=== PATIENT | male | born 1955 | race Two or more races ===

== ENCOUNTER 2021-02-06 08:52 | Inpatient (IN) | payer BC, OTHER ==
[~2021-02-06] VITALS: Ht 182.9 cm; Wt 111.9 kg
[2021-02-06] MEDS ORDERED: cefTRIAXone 1GM/50ML D5W 50 ML IV ONE (10:00)
[2021-02-06] MEDS ORDERED: AZITHROMYCIN 500MG/ 250ML 250 ML IV ONE (10:00)
[2021-02-06] MEDS ORDERED: DexAMETHasone SOD PHOS 10MG/1ML VIAL INJ IV ONE (10:00)
[2021-02-06 10:26] LABS: Eosinophils # (auto) 0 10 ^3/uL (0-0.8); Hemoglobin 17.8 g/dL (13.5-17.5)
[2021-02-06 10:27] LABS: Basophils # (auto) 0 10 ^3/uL (0-0.2); Basophils % (auto) 0.1 % (0.0-2.0); Hematocrit 51.1 % (41.0-53.0); Lymphocytes # (auto) 0.4 10 ^3/uL (0.4-5.4); Lymphocytes % (auto) 2.9 % (10.0-50.0); Mean Corpuscular Hemoglobin 30.3 pg (28.0-32.0); Mean Corpuscular Hgb Conc. 34.9 g/dL (32.0-36.0); Monocytes # (auto) 0.9 10 ^3/uL (0-1.3); Nucleated Red Blood Cells % 0.2 %; Red Blood Cells 5.87 10^6/uL (4.5-5.90); Red Cell Distribution Width 13.7 % (11.8-14.3); White Blood Cell 14.3 10^3/uL (4.4-10.8)
[2021-02-06 10:50] LABS: INR 1.22 (0.9-1.15); Partial Thromboplastin Time 27.4 sec (23.6-33.0)
[2021-02-06 10:57] LABS: Albumin 2.4 g/dL (3.4-5.0); Calcium 8.4 mg/dL (8.5-10.1); Potassium 3.7 mmol/L (3.5-5.1)
[2021-02-06 11:05] LABS: BUN/Creatinine Ratio 23.7; Bilirubin, Total 0.7 mg/dL (0.2-1.0); CRP High Sensitivity 6.65 mg/dL (< 0.3); Total Protein 7.8 g/dL (6.4-8.2)
[2021-02-06] MEDS ORDERED: ONDANSETRON HCL 4 MG/2 ML VIAL IV PRN (14:45)
[2021-02-06] MEDS ORDERED: LORazepam 0.5 MG TAB PO PRN (14:45)
[2021-02-06] MEDS ORDERED: ACETAMINOPHEN 325 MG TAB PO PRN (14:45)
[2021-02-06] MEDS ORDERED: NITROGLYCERIN 0.4 MG SL TAB SL PRN (14:45)
[2021-02-06] MEDS ORDERED: HYDROcodone-ACET 5/325MG TAB PO PRN (14:45)
[2021-02-06] MEDS ORDERED: REMDESIVIR PER PHARMACY 0 ML IV SCH (14:45)
[2021-02-06] MEDS ORDERED: MORPHINE SULFATE INJECTION 2 MG/ML SYRG IV PRN (14:45)
[2021-02-06] MEDS ORDERED: DEXTROSE (50%) 50ML SYRG IV PRN (15:15)
[2021-02-06 16:02] LABS: Cholesterol 102 mg/dL (< 200)
[2021-02-06 16:05] LABS: HDL Cholesterol 24 mg/dL (40-59); LDL Cholesterol 59 mg/dL (< 100); Triglycerides 152 mg/dL (< 150)
[2021-02-06] MEDS ORDERED: REMDESIVIR 200 MG in NS 210ml LOADING DOSE ADULT IV ONE (16:30)
[2021-02-06] MEDS: ACCU-CHEK COMFORT CURVE STRIP VI SCH ×2 (18:09→22:15)
[2021-02-06] MEDS: SODIUM CHLORIDE 0.9% 1,000 ML IV SCH (18:09)
[2021-02-06] MEDS: InsuLIN REG 1unit/0.01ml Soln (100units/ml) SC SCH ×2 (18:15→22:18)
[2021-02-06] MEDS: BUDESONIDE (INHALATION) 180 MCG IH IN SCH (18:35)
[2021-02-06] MEDS: ALBUTEROL SULF HFA 90MCG INH 200DOSE IN PRN (19:37)
[2021-02-06 20:30] VITALS: BP 125/68
[2021-02-06 22:03] VITALS: BP 136/75
[2021-02-06] MEDS: ENOXAPARIN SOD 40 MG/0.4 ML SYRINGE SC SCH (22:15)
[2021-02-07] MEDS ORDERED: ALBU108A5 INH (02:57)
[2021-02-07] MEDS ORDERED: METF-370 PO (02:57)
[2021-02-07] MEDS ORDERED: IBUP800T26 PO (02:57)
[2021-02-07] MEDS ORDERED: LEVO50TA7 PO (02:57)
[2021-02-07] MEDS ORDERED: TRAM50TA2 PO (02:57)
[2021-02-07 05:00] VITALS: BP 127/71
[2021-02-07] MEDS: ACCU-CHEK COMFORT CURVE STRIP VI SCH ×4 (06:54→21:24)
[2021-02-07] MEDS: InsuLIN REG 1unit/0.01ml Soln (100units/ml) SC SCH ×4 (06:54→21:25)
[2021-02-07] MEDS: BUDESONIDE (INHALATION) 180 MCG IH IN SCH ×3 (06:55→20:46)
[2021-02-07] MEDS: ALBUTEROL SULF HFA 90MCG INH 200DOSE IN PRN ×3 (06:55→20:57)
[2021-02-07] MEDS: SODIUM CHLORIDE 0.9% 1,000 ML IV SCH (07:29)
[2021-02-07 07:46] LABS: Basophils # (auto) 0.1 10 ^3/uL (0-0.2); Basophils % (auto) 0.6 % (0.0-2.0); Eosinophils # (auto) 0 10 ^3/uL (0-0.8); Eosinophils % (auto) 0.1 % (0.0-7.0); Hematocrit 48.2 % (41.0-53.0); Mean Corpuscular Hemoglobin 30.2 pg (28.0-32.0); Monocytes # (auto) 0.6 10 ^3/uL (0-1.3); Neutrophils # (auto) 8.4 10 ^3/uL (1.6-8.6)
[2021-02-07 07:48] LABS: Hemoglobin 16.7 g/dL (13.5-17.5); Lymphocytes % (auto) 9.5 % (10.0-50.0); Mean Corpuscular Hgb Conc. 34.6 g/dL (32.0-36.0); Mean Corpuscular Volume 87.3 fL (80.0-100.0); Monocytes % (auto) 6.4 % (0.0-12.0); Neutrophils % (auto) 83.4 % (37.0-80.0); Nucleated Red Blood Cells % 0.1 %; Red Blood Cells 5.52 10^6/uL (4.5-5.90); Red Cell Distribution Width 13.8 % (11.8-14.3); White Blood Cell 10.1 10^3/uL (4.4-10.8)
[2021-02-07 07:58] LABS: Potassium 4.1 mmol/L (3.5-5.1)
[2021-02-07 08:09] LABS: Albumin 2.5 g/dL (3.4-5.0); BUN/Creatinine Ratio 28.1; Bilirubin, Total 0.8 mg/dL (0.2-1.0); Calcium 8.4 mg/dL (8.5-10.1); Total Protein 6.8 g/dL (6.4-8.2)
[2021-02-07] MEDS: cefTRIAXone 1GM/50ML D5W 50 ML IV SCH (08:53)
[2021-02-07] MEDS: ENOXAPARIN SOD 40 MG/0.4 ML SYRINGE SC SCH ×2 (08:54→21:24)
[2021-02-07] MEDS: ZINC SULFATE 220mg CAP or TAB PO SCH (08:54)
[2021-02-07] MEDS: AZITHROMYCIN 500MG/ 250ML 250 ML IV SCH (08:54)
[2021-02-07] MEDS: DexAMETHasone SOD PHOS 10MG/1ML VIAL INJ IV SCH (08:54)
[2021-02-07] MEDS: ASCORBIC ACID 1,000 MG TAB PO SCH (08:55)
[2021-02-07] MEDS: CHOLECALCIFEROL (VITD3) 2,000 UNIT CAP/TAB PO SCH (08:55)
[2021-02-07 09:00] VITALS: BP 134/69
[2021-02-07 13:00] VITALS: BP 131/73
[2021-02-07] MEDS: REMDESIVIR 100mg 100 MG in SODIUM CHL 0.9% 230 ML IV SCH (14:14)
[2021-02-07 17:00] VITALS: BP 120/63
[2021-02-07 22:00] VITALS: BP 130/75
[2021-02-08] MEDS: SODIUM CHLORIDE 0.9% 1,000 ML IV SCH (00:05)
[2021-02-08 05:00] VITALS: BP 133/70
[2021-02-08] MEDS: BUDESONIDE (INHALATION) 180 MCG IH IN SCH ×2 (06:17→21:31)
[2021-02-08] MEDS: ALBUTEROL SULF HFA 90MCG INH 200DOSE IN PRN ×2 (06:17→21:31)
[2021-02-08] MEDS: InsuLIN REG 1unit/0.01ml Soln (100units/ml) SC SCH ×4 (06:33→21:48)
[2021-02-08] MEDS: ACCU-CHEK COMFORT CURVE STRIP VI SCH ×4 (06:33→21:47)
[2021-02-08 07:02] LABS: Basophils # (auto) 0 10 ^3/uL (0-0.2); Basophils % (auto) 0.1 % (0.0-2.0); Eosinophils # (auto) 0 10 ^3/uL (0-0.8); Eosinophils % (auto) 0.1 % (0.0-7.0); Hematocrit 47.8 % (41.0-53.0); Hemoglobin 16.2 g/dL (13.5-17.5); Lymphocytes # (auto) 1.1 10 ^3/uL (0.4-5.4); Mean Corpuscular Hemoglobin 29.7 pg (28.0-32.0); Mean Corpuscular Hgb Conc. 33.9 g/dL (32.0-36.0); Mean Corpuscular Volume 87.5 fL (80.0-100.0); Monocytes # (auto) 0.7 10 ^3/uL (0-1.3); Monocytes % (auto) 6.7 % (0.0-12.0); Neutrophils # (auto) 8.3 10 ^3/uL (1.6-8.6); Neutrophils % (auto) 82.1 % (37.0-80.0); Nucleated Red Blood Cells % 0.1 %; Red Blood Cells 5.47 10^6/uL (4.5-5.90); Red Cell Distribution Width 13.8 % (11.8-14.3); White Blood Cell 10.1 10^3/uL (4.4-10.8)
[2021-02-08 07:32] LABS: BUN/Creatinine Ratio 30.7; Bilirubin, Total 0.6 mg/dL (0.2-1.0); Calcium 7.9 mg/dL (8.5-10.1); Potassium 4.1 mmol/L (3.5-5.1); Total Protein 6.1 g/dL (6.4-8.2)
[2021-02-08 07:33] LABS: Albumin 2.3 g/dL (3.4-5.0)
[2021-02-08 08:15] VITALS: BP 130/83
[2021-02-08] MEDS: cefTRIAXone 1GM/50ML D5W 50 ML IV SCH (08:27)
[2021-02-08] MEDS: AZITHROMYCIN 500MG/ 250ML 250 ML IV SCH (08:27)
[2021-02-08] MEDS: DexAMETHasone SOD PHOS 10MG/1ML VIAL INJ IV SCH (08:27)
[2021-02-08] MEDS: ZINC SULFATE 220mg CAP or TAB PO SCH (08:27)
[2021-02-08] MEDS: ASCORBIC ACID 1,000 MG TAB PO SCH (08:28)
[2021-02-08] MEDS: ENOXAPARIN SOD 40 MG/0.4 ML SYRINGE SC SCH ×2 (08:28→21:48)
[2021-02-08] MEDS: CHOLECALCIFEROL (VITD3) 2,000 UNIT CAP/TAB PO SCH (08:28)
[2021-02-08 12:00] VITALS: BP 139/92
[2021-02-08] MEDS: REMDESIVIR 100mg 100 MG in SODIUM CHL 0.9% 230 ML IV SCH (14:57)
[2021-02-08 16:00] VITALS: BP 144/69
[2021-02-08 22:00] VITALS: BP 144/72
[2021-02-09 05:00] VITALS: BP 145/68
[2021-02-09] MEDS: ALBUTEROL SULF HFA 90MCG INH 200DOSE IN PRN ×2 (05:51→23:08)
[2021-02-09] MEDS: BUDESONIDE (INHALATION) 180 MCG IH IN SCH ×2 (05:51→22:06)
[2021-02-09] MEDS: InsuLIN REG 1unit/0.01ml Soln (100units/ml) SC SCH ×4 (06:26→22:17)
[2021-02-09] MEDS: ACCU-CHEK COMFORT CURVE STRIP VI SCH ×4 (06:27→22:14)
[2021-02-09 07:36] LABS: Potassium 4.2 mmol/L (3.5-5.1)
[2021-02-09 07:48] LABS: Albumin 2.2 g/dL (3.4-5.0); BUN/Creatinine Ratio 23.4; Bilirubin, Total 0.6 mg/dL (0.2-1.0); Calcium 8.3 mg/dL (8.5-10.1)
[2021-02-09 09:00] VITALS: BP 152/82
[2021-02-09] MEDS: cefTRIAXone 1GM/50ML D5W 50 ML IV SCH (09:33)
[2021-02-09] MEDS: ZINC SULFATE 220mg CAP or TAB PO SCH (09:34)
[2021-02-09] MEDS: DexAMETHasone SOD PHOS 10MG/1ML VIAL INJ IV SCH (09:34)
[2021-02-09] MEDS: ASCORBIC ACID 1,000 MG TAB PO SCH (09:35)
[2021-02-09] MEDS: ENOXAPARIN SOD 40 MG/0.4 ML SYRINGE SC SCH ×2 (09:35→22:14)
[2021-02-09] MEDS: CHOLECALCIFEROL (VITD3) 2,000 UNIT CAP/TAB PO SCH (09:35)
[2021-02-09] MEDS: AZITHROMYCIN 500MG/ 250ML 250 ML IV SCH (11:39)
[2021-02-09 13:00] VITALS: BP 140/74
[2021-02-09 15:23] VITALS: BP 151/78
[2021-02-09] MEDS: REMDESIVIR 100mg 100 MG in SODIUM CHL 0.9% 230 ML IV SCH (15:29)
[2021-02-09 17:00] VITALS: BP 155/76
[2021-02-09 22:00] VITALS: BP 156/75
[2021-02-10] MEDS ORDERED: EPINEPHrine HCL 0 ML IV ONE (00:42)
[2021-02-10 05:00] VITALS: BP 153/62
[2021-02-10] MEDS: ACCU-CHEK COMFORT CURVE STRIP VI SCH ×4 (06:41→21:16)
[2021-02-10] MEDS: InsuLIN REG 1unit/0.01ml Soln (100units/ml) SC SCH ×4 (06:42→21:15)
[2021-02-10] MEDS: ALBUTEROL SULF HFA 90MCG INH 200DOSE IN PRN ×2 (08:52→19:53)
[2021-02-10] MEDS: BUDESONIDE (INHALATION) 180 MCG IH IN SCH ×2 (08:52→19:54)
[2021-02-10 09:00] VITALS: BP 144/77
[2021-02-10] MEDS: AZITHROMYCIN 500MG/ 250ML 250 ML IV SCH (10:00)
[2021-02-10] MEDS: cefTRIAXone 1GM/50ML D5W 50 ML IV SCH (10:03)
[2021-02-10] MEDS: ASCORBIC ACID 1,000 MG TAB PO SCH (10:03)
[2021-02-10] MEDS: ZINC SULFATE 220mg CAP or TAB PO SCH (10:03)
[2021-02-10] MEDS: DexAMETHasone SOD PHOS 10MG/1ML VIAL INJ IV SCH (10:03)
[2021-02-10] MEDS: CHOLECALCIFEROL (VITD3) 2,000 UNIT CAP/TAB PO SCH (10:04)
[2021-02-10] MEDS: ENOXAPARIN SOD 40 MG/0.4 ML SYRINGE SC SCH ×2 (10:04→21:18)
[2021-02-10 13:00] VITALS: BP 150/75
[2021-02-10] MEDS: REMDESIVIR 100mg 100 MG in SODIUM CHL 0.9% 230 ML IV SCH (15:00)
[2021-02-10 17:00] VITALS: BP 156/72
[2021-02-10 21:30] VITALS: BP 145/73
[2021-02-11] VITALS (7 sets, daily range): BP systolic 129–147; BP diastolic 68–80
[2021-02-11] MEDS: ACCU-CHEK COMFORT CURVE STRIP VI SCH ×3 (06:11→16:37)
[2021-02-11] MEDS: InsuLIN REG 1unit/0.01ml Soln (100units/ml) SC SCH ×3 (06:12→17:10)
[2021-02-11] MEDS: cefTRIAXone 1GM/50ML D5W 50 ML IV SCH (09:13)
[2021-02-11] MEDS: DexAMETHasone SOD PHOS 10MG/1ML VIAL INJ IV SCH (10:46)
[2021-02-11] MEDS: ZINC SULFATE 220mg CAP or TAB PO SCH (10:46)
[2021-02-11] MEDS: ASCORBIC ACID 1,000 MG TAB PO SCH (10:47)
[2021-02-11] MEDS: ENOXAPARIN SOD 40 MG/0.4 ML SYRINGE SC SCH (10:47)
[2021-02-11] MEDS: CHOLECALCIFEROL (VITD3) 2,000 UNIT CAP/TAB PO SCH (10:47)
[2021-02-11] MEDS: AZITHROMYCIN 500MG/ 250ML 250 ML IV SCH (12:06)
[2021-02-11] MEDS: BUDESONIDE (INHALATION) 180 MCG IH IN SCH (15:33)
[2021-02-11] MEDS: ALBUTEROL SULF HFA 90MCG INH 200DOSE IN PRN (15:33)
== END 2021-02-11 22:22 | disposition home or self-care (01) | DRG 177 ==
LOC: ER 08:52 → TELE 14:38 → TELE-WESTW 20:20 → TELE-EAST 02-08 23:14
PROVIDERS: ADMIT Internal Medicine; ATTEND Internal Medicine
PROC: XW033E5 Introduction of Remdesivir Anti-infective into Peripheral Vein, Percutaneous Approach, New Technology Group 5 (ICD-10-PCS; principal; 2021-02-06)
DX: U07.1 COVID-19 (principal); J12.82 Pneumonia due to coronavirus disease 2019; J96.01 Acute respiratory failure with hypoxia; D89.839 Cytokine release syndrome, grade unspecified; E66.9 Obesity, unspecified; E11.9 Type 2 diabetes mellitus without complications; I10 Essential (primary) hypertension; Z68.33 Body mass index [BMI] 33.0-33.9, adult; E78.5 Hyperlipidemia, unspecified; Z87.891 Personal history of nicotine dependence; R00.1 Bradycardia, unspecified
CPT/HCPCS: 36415; 36600; 71045; 71275; 80053; 80061; 82728; 82805; 82962; 83036; 83880; 84443; 84484; 85025; 85379; 85610; 85730; 86141; 87040; 87426; 93005; 93306; 93970; 94640; 96365; 96368; 96375; 99291; G0378; J0171; J0696; J1100; J1815